=== PATIENT | female | born 1985 | race Caucasian/White ===

== ENCOUNTER 2017-07-31 20:58 | Inpatient (IN) | payer OTHER ==
[2017-07-31] MEDS ORDERED: Lidocaine 1% 50 ML MDV INJECT ONE (21:52)
[2017-07-31] MEDS ORDERED: Sodium Chloride 0.9% 10 ML Syringe FLUSH PRN (21:52)
[2017-07-31] MEDS ORDERED: Nalbuphine 20 MG/1 ML Amp IVPUSH PRN (21:52)
[2017-07-31] MEDS ORDERED: Ondansetron 4 MG/2 ML SDV IVPUSH PRN (21:52)
[2017-07-31] MEDS ORDERED: Oxytocin/Lactated Ringers 10 UNIT/1,000 ML BAG IV SCH ×2 (22:00)
[2017-07-31] MEDS: Lactated Ringers 1,000 ML IV SCH ×2 (22:15→22:54)
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
[2017-07-31] MEDS ORDERED: diphenhydrAMINE 50 MG/ML SDV IVPUSH PRN (22:41)
[2017-07-31] MEDS ORDERED: ePHEDrine 50 MG/ML SDV IVPUSH PRN (22:41)
[2017-07-31] MEDS ORDERED: fentaNYL 100 MCG/2 ML SDV EPIDUR PRN (22:41)
[2017-07-31] MEDS ORDERED: fentaNYL/Bupivacaine in NS PF 2.5 MCG/ML-0.1% 50 ML Syringe EPIDUR SCH (22:45)
--- NOTE | 2017-07-31 23:08 | PCM.PREANE ---
Preanesthetic Assessment - Anesthesia/Transfusion/Family Hx Anesthesia History: Prior Anesthesia Without Reaction Family History of Anesthesia Reaction: No Transfusion History: No Prior Transfusion(s) - Review of Systems General: No Symptoms Pulmonary: No Symptoms Cardiovascular: No Symptoms Gastrointestinal: No Symptoms Neurological: No Symptoms Other: Reports: Anxiety - Physical Assessment O2 Sat by Pulse Oximetry: 99 Respiratory Rate: 14 Vital Signs: Last Vital Signs Temp 98.2 F 07/31/17 21:52 Pulse 91 07/31/17 21:52 Resp 14 07/31/17 21:52 BP 140/85 07/31/17 21:52 Pulse Ox 99 07/31/17 21:52 Height: 5 ft 6 in Weight: 68.039 kg ASA Class: 2 Mental Status: Alert & Oriented x3 Airway Class: Mallampati = 1 Dentition: Reports: Normal Dentition Thyro-Mental Finger Breadths: 3 Mouth Opening Finger Breadths: 3 ROM/Head Extension: Full Lungs: Clear to Auscultation, Normal Respiratory Effort Cardiovascular: Regular Rate, Regular Rhythm - Lab Values: Laboratory Last Values WBC 15.64 K/mm3 (3.98-10.04) H 07/31/17 22:18 RBC 4.14 M/mm3 (3.98-5.22) 07/31/17 22:18 Hgb 11.5 gm/L (11.2-15.7) 07/31/17 22:18 Hct 34.8 % (34.1-44.9) 07/31/17 22:18 MCV 84.1 fl (79.4-94.8) 07/31/17 22:18 MCH 27.8 pg (25.6-32.2) 07/31/17 22:18 MCHC 33.0 g/dl (32.2-35.5) 07/31/17 22:18 RDW Std Deviation 47.4 fL (36.4-46.3) H 07/31/17 22:18 Plt Count 250 K/mm3 (182-369) 07/31/17 22:18 MPV 10.4 fl (9.4-12.3) 07/31/17 22:18 - Allergies Allergies/Adverse Reactions: Allergies Allergy/AdvReac Type Severity Reaction Status Date / Time No Known Allergies Allergy Verified 07/31/17 22:00 - Blood Blood Available: No - Acknowledgements Anesthesia Type Planned: Epidural Pt an Appropriate Candidate for the Planned Anesthesia: Yes Alternatives and Risks of Anesthesia Discussed w Pt/Guardian: Yes Pt/Guardian Understands and Agrees with Anesthesia Plan: Yes PreAnesthesia Questionnaire HEENT History: Reports: Impaired Vision Other HEENT History: glasses Cardiovascular History: Reports: None, Other (See Below) (in ER for tachycardia) Respiratory History: Reports: None Gastrointestinal History: Reports: GERD (with preg) PERSONAL TRAINER History: Reports: Dysfunctional Uterine Bleeding, Other (See Below) Other OB/BYN History: current period started at [facility]. states having heavy periods with clots Musculoskeletal History: Reports: Other (See Below) Other Musculoskeletal History: spinal bifida Neurological History: Reports: Migraines Psychiatric History: Reports: Anxiety, Depression - Past Surgical History Female Surgical History: Reports: Section Musculoskeletal Surgical History: Reports: Other (See Below) - SUBSTANCE USE Smoking Status *Q: Current Every Day Smoker Tobacco Use Within Last Twelve Months: Cigarettes Second Hand Smoke Exposure: Yes Days Per Week of Alcohol Use: 0 Recreational Drug Use History: No - HOME MEDS Home Medications: Home Meds traMADol HCl [Tramadol HCl] 50 mg PO ASDIRECTED 05/25/14 [History] Gabapentin [Neurontin] 300 mg PO BEDTIME 04/14/16 [History] Ferrous Sulfate [Iron] 325 mg PO BID 07/31/17 [History] traMADol HCl [Tramadol HCl] 50 mg PO BID 07/31/17 [History] - CURRENT (IN HOUSE) MEDS Current Meds: Current Medications Diphenhydramine HCl (Benadryl) 25 mg IVPUSH Q6H PRN PRN Reason: pruritis Ephedrine Sulfate (Ephedrine Sulfate) 5 mg IVPUSH ASDIRECTED PRN PRN Reason: Hypotension Fentanyl (Sublimaze) 100 mcg EPIDUR Q3H PRN PRN Reason: Pain Last Admin: 07/31/17 23:03 Dose: 100 mcg Fentanyl/Bupivacaine HCl (Fentanyl/Bupivacaine/Ns 2.5 Mcg-0.1% 50 Ml) 50 ml EPIDUR ASDIRECTED REPLACED BY [facility] Last Admin: 07/31/17 23:03 Dose: 50 ml Lactated Ringer's (Ringers, Lactated) 1,000 mls @ 100 mls/hr IV ASDIRECTED REPLACED BY [facility] Last Admin: 04/12/18 22:15 Dose: 999 mls/hr Oxytocin/Lactated Ringer's (Pitocin In Lr 10 Units/1,000 Ml) 10 unit in 1,000 mls @ 100 mls/hr IV .CONTINUOUS RADHA Oxytocin/Lactated Ringer's (Pitocin In Lr 10 Units/1,000 Ml) 10 unit in 1,000 mls @ 500 mls/hr IV .CONTINUOUS RADHA Nalbuphine HCl (Nubain) 10 mg IVPUSH Q2H PRN PRN Reason: Pain (moderate 4-6) Ondansetron HCl (Zofran) 4 mg IVPUSH Q4H PRN PRN Reason: Nausea/Vomiting Sodium Chloride (Saline Flush) 10 ml FLUSH ASDIRECTED PRN PRN Reason: Keep Vein Open Discontinued Medications Lidocaine HCl (Xylocaine 1%) 10 ml INJECT ONETIME ONE Stop: 07/31/17 21:53
[2017-08-01] MEDS ORDERED: Bupivacaine 0.25% 10 ML SDV ONE (01:00)
--- NOTE | 2017-08-01 01:18 | PCM.SN ---
- Free Text/Narrative Note: Andreina is a 32-year-old 4 now para 4004 white female who was admitted on the evening of 07/31/2017 in active labor. She is found be approximately 4 cm dilated, 80% effaced with bulging bag claudio. After admission heart tones are noted to be reassuring and artificial rupture membranes was undertaken. She is group B strep negative. Precautions were taken considering she was a vaginal after section candidate. Consents were obtained for both section and trial of labor after section to achieve vaginal after section. labs were obtained. Patient was monitored continuously. Anesthesia and surgery departments were made aware of her presence in labor and delivery. She had an epidural placed for labor and analgesia. She progressed well and at approximately oh 12:15 patient became complete on . She pushed for a short period of time and delivered a viable, dickerson , female infant with Apgars of 8 and 9, a length of 19 inches and a weight of 3080 g (6 pounds 12.6 ounces) in a left occiput anterior position. Baby was placed on mom's abdomen, was dried and stimulated. Nose and mouth were bulb suctioned. Cord was clamped 2 and cut by the baby's father. Cord blood was obtained. Umbilical cord had 3 vessels. She had a small second-degree laceration. Laceration was repaired with 3-0 Monocryl suture in a routine fashion using epidural for anesthesia. Pitocin was administered after the delivery the baby to facilitate increase uterine tone and decreased likelihood of bleeding. Placenta delivered in a Ponce presentation, appeared intact and was discarded per patient desire. Patient plans to nurse. As her blood loss was 100 mL. Condition was good.
[2017-08-01] MEDS ORDERED: Benzocaine/Menthol 20%-0.5% Spray 56 GM Canister TOP PRN (01:53)
[2017-08-01] MEDS ORDERED: Docusate Sodium 100 MG Cap PO PRN (01:53)
[2017-08-01] MEDS ORDERED: Acetaminophen 325 MG Tab PO PRN (01:53)
[2017-08-01] MEDS ORDERED: Witch Hazel Medicated Pads 100/Jar TOP PRN (01:53)
[2017-08-01] MEDS ORDERED: Lanolin 100% Cream 7 GM Tube TOP PRN (01:53)
[2017-08-01] MEDS: Ibuprofen 600 MG Tab PO PRN ×2 (02:23→17:53)
[2017-08-01] MEDS ORDERED: Prenatal Multivitamin with Calcium/Folic Acid/Iron Tab PO SCH (09:00)
[2017-08-01] MEDS: traMADol 50 MG Tab PO SCH (14:32)
[2017-08-02] MEDS: Ibuprofen 600 MG Tab PO PRN (04:39)
[2017-08-02] MEDS: traMADol 50 MG Tab PO SCH ×2 (06:55→09:57)
--- NOTE | 2017-08-02 07:02 | PCM.DCSUM1 ---
Discharge Summary - Hospital Course Free Text/Narrative:: Andreina is a 32-year-old 4 now para 4004 white female who was admitted on the evening of 07/31/2017 in active labor. She is found be approximately 4 cm dilated, 80% effaced with bulging bag claudio. After admission heart tones are noted to be reassuring and artificial rupture membranes was undertaken. She is group B strep negative. Precautions were taken considering she was a vaginal after section candidate. Consents were obtained for both section and trial of labor after section to achieve vaginal after section. labs were obtained. Patient was monitored continuously. Anesthesia and surgery departments were made aware of her presence in labor and delivery. She had an epidural placed for labor and analgesia. She progressed well and at approximately oh 12:15 patient became complete on . She pushed for a short period of time and delivered a viable, dickerson , female with Apgars of 8 and 9, a length of 19 inches and a weight of 3080 g (6 pounds 12.6 ounces) in a left occiput anterior position. Baby was placed on mom's abdomen, was dried and stimulated. Nose and mouth were bulb suctioned. Cord was clamped 2 and cut by the baby's father. Cord blood was obtained. Umbilical cord had 3 vessels. She had a small second-degree laceration. Laceration was repaired with 3-0 Monocryl suture in a routine fashion using epidural for anesthesia. Pitocin was administered after the delivery the baby to facilitate increase uterine tone and decreased likelihood of bleeding. Placenta delivered in a [place] presentation, appeared intact and was discarded per patient desire. Patient plans to nurse. As her blood loss was 100 mL. Post patient was restarted on her tramadol 25 mg per day. Also restarted on her gabapentin for back pain. She is nursing without problems. She is doing well, has minimal lochia and is voiding without concerns. She is desiring discharge home. - Discharge Data Discharge Date: 08/02/17 Discharge Disposition: Home, Self-Care 01 Condition: Good - Patient Instructions Diet: Regular Diet as Tolerated (Nursing diet with increased calories and calcium as directed) Activity: As Tolerated (No intercourse or tampons until bleeding resolves) Driving: Do Not Drive (Do not drive [address] as desired.) Showering/Bathing: May Shower (Patient may take a bath) Notify Provider of: Fever, Increased Pain, Swelling and Redness, Nausea and/or Vomiting - Discharge Plan Home Medications: Home Meds traMADol HCl [Tramadol HCl] 50 mg PO ASDIRECTED 05/25/14 [History] Gabapentin [Neurontin] 300 mg PO BEDTIME 04/14/16 [History] Ferrous Sulfate [Iron] 325 mg PO BID 07/31/17 [History] traMADol HCl [Tramadol HCl] 50 mg PO BID 07/31/17 [History] Acetaminophen [Tylenol] 650 mg PO Q4H PRN tablet 08/02/17 [Rx] Ibuprofen [IJD: Ibuprofen] 600 mg PO Q4H PRN tablet 08/02/17 [Rx] Patient Handouts: Steps to Quit Smoking Referrals: Paras Alberts MD [Primary Care Provider] - (Return to clinicDr. Alberts2 weeks.) - Discharge Summary/Plan Comment DC Time >30 min.: No Discharge Summary/Plan Comment: Discharge instructions: 1. Discharge home 2. Diet, activity and follow-up discussed with patient. Recommend nursing diet with increased calories and calcium. 3. Precautions given concern increased pain, bleeding, temperature, signs/ symptoms of DVT/PE. 4. Medications per home medication was printed, discussed with and given to the patient. 5. Return to clinic-Dr. Alberts[facility] in 2 weeks. Diagnosis: Term -delivered Condition: Good - Patient Data Vitals - Most Recent: Last Vital Signs Temp 36.6 C 08/01/17 21:19 Pulse 64 08/02/17 03:45 Resp 16 08/02/17 03:45 BP 96/49 L 08/02/17 03:45 Pulse Ox 96 08/02/17 03:45 Weight - Most Recent: 68.039 kg I&O - Last 24 hours: Intake & Output 08/01/17 08/01/17 08/02/17 14:59 22:59 06:59 Intake Total 360 Balance 360 Med Orders - Current: Current Medications Acetaminophen (Tylenol) 650 mg PO Q4H PRN PRN Reason: mild pain or fever Benzocaine/Menthol (Dermoplast Pain Relief [place]) 0 gm TOP ASDIRECTED PRN PRN Reason: Perineal Comfort Measure Last Admin: 08/01/17 02:22 Dose: 1 can Docusate Sodium (Colace) 100 mg PO BID PRN PRN Reason: Constipation Emollient Ointment (Lansinoh Hpa) 0 gm TOP ASDIRECTED PRN PRN Reason: Sore Nipples Gabapentin (Neurontin) 300 mg PO BEDTIME RADHA Ibuprofen (Motrin) 600 mg PO Q4H PRN PRN Reason: Mild pain or fever Last Admin: 08/02/17 04:39 Dose: 600 mg Prenat Multivit/[place]/Iron/Folic Ac ( Plus Iron) 1 each PO DAILY [facility] Last Admin: 08/01/17 14:32 Dose: 1 each Tramadol HCl (Ultram) 25 mg PO DAILY [facility] Last Admin: 08/02/17 06:55 Dose: 25 mg Witch Elo (Tucks) 1 pad TOP ASDIRECTED PRN PRN Reason: Hemorrhoid pain Last Admin: 08/01/17 02:22 Dose: 1 can Discontinued Medications Bupivacaine HCl (Sensorcaine-Mpf 0.25%) 10 ml .ROUTE .[facility] ONE Stop: 08/01/17 01:01 Diphenhydramine HCl (Benadryl) 25 mg IVPUSH Q6H PRN PRN Reason: pruritis Ephedrine Sulfate (Ephedrine Sulfate) 5 mg IVPUSH ASDIRECTED PRN PRN Reason: Hypotension Fentanyl (Sublimaze) 100 mcg EPIDUR Q3H PRN PRN Reason: Pain Last Admin: 07/31/17 23:03 Dose: 100 mcg Fentanyl/Bupivacaine HCl (Fentanyl/Bupivacaine/Ns 2.5 Mcg-0.1% 50 Ml) 50 ml EPIDUR ASDIRECTED [facility] Last Admin: 07/31/17 23:03 Dose: 50 ml Lactated Ringer's (Ringers, Lactated) 1,000 mls @ 100 mls/hr IV ASDIRECTED [facility] Last Admin: 07/31/17 22:54 Dose: 999 mls/hr Oxytocin/Lactated Ringer's (Pitocin In Lr 10 Units/1,000 Ml) 10 unit in 1,000 mls @ 100 mls/hr IV .CONTINUOUS RADHA Last Admin: 08/01/17 02:22 Dose: 100 mls/hr Oxytocin/Lactated Ringer's (Pitocin In Lr 10 Units/1,000 Ml) 10 unit in 1,000 mls @ 500 mls/hr IV .CONTINUOUS RADHA Lidocaine HCl (Xylocaine 1%) 10 ml INJECT ONETIME ONE Stop: 07/31/17 21:53 Nalbuphine HCl (Nubain) 10 mg IVPUSH Q2H PRN PRN Reason: Pain (moderate 4-6) Ondansetron HCl (Zofran) 4 mg IVPUSH Q4H PRN PRN Reason: Nausea/Vomiting Sodium Chloride (Saline Flush) 10 ml FLUSH ASDIRECTED PRN PRN Reason: Keep Vein Open
[2017-08-02 09:51] VITALS: BP 123/79
[2017-08-02] MEDS ORDERED: Gabapentin 300 MG Cap PO SCH (21:00)
== END 2017-08-02 10:24 | disposition home or self-care (01) | DRG 775 ==
LOC: JD.OBCHECK 20:58 → JD.OB 20:59 → JD.OBCHECK 22:01 → JD.OB 22:02 → OBSVTOIN 08-01 00:35 → JD.MS 08-01 00:36 → JD.OB 08-01 13:20
PROVIDERS: ADMIT Obstetrics & Gynecology; ATTEND Obstetrics & Gynecology
PROC: 00HU33Z Insertion of Infusion Device into Spinal Canal, Percutaneous Approach (ICD-10-PCS; 2017-07-31)
PROC: 3E0R3BZ Introduction of Anesthetic Agent into Spinal Canal, Percutaneous Approach (ICD-10-PCS; 2017-07-31)
PROC: 0KQM0ZZ Repair Perineum Muscle, Open Approach (ICD-10-PCS; principal; 2017-08-01)
PROC: 10907ZC Drainage of Amniotic Fluid, Therapeutic from Products of Conception, Via Natural or Artificial Opening (ICD-10-PCS; principal; 2017-08-01)
PROC: 6A550ZT Pheresis of Cord Blood Stem Cells, Single (ICD-10-PCS; principal; 2017-08-01)
PROC: 10E0XZZ Delivery of Products of Conception, External Approach (ICD-10-PCS; principal; 2017-08-01)
DX: O34.219 Maternal care for unspecified type scar from previous cesarean delivery (principal); Z37.0 Single live birth; N85.8 Other specified noninflammatory disorders of uterus; O99.334 Smoking (tobacco) complicating childbirth; F17.210 Nicotine dependence, cigarettes, uncomplicated; Z3A.38 38 weeks gestation of pregnancy; O70.1 Second degree perineal laceration during delivery; O75.89 Other specified complications of labor and delivery; M79.7 Fibromyalgia; Q05.9 Spina bifida, unspecified
CPT/HCPCS: 36415; 51702; 59025; 59300; 59409; 85027; 86850; 86900; 86901; A9270-GY; J2590; J3010; J7120

== ENCOUNTER 2020-12-21 05:24 | Emergency (ER) | payer OTHER ==
[2020-12-21 05:42] VITALS: BP 124/82; PULSE 93
[2020-12-21] MEDS ORDERED: Sodium Chloride 0.9% 10 ML Syringe FLUSH PRN (05:57)
[2020-12-21] MEDS ORDERED: Ondansetron 4 MG/2 ML SDV IVPUSH ONE (05:57)
[2020-12-21] MEDS ORDERED: HYDROmorphone 0.5 MG/0.5 ML Syringe IVPUSH ONE (05:59)
[2020-12-21] MEDS ORDERED: Sodium Chloride 0.9% 1,000 ML IV SCH (06:00)
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
--- NOTE | 2020-12-21 07:03 | CT ---
CT abdomen and pelvis Technique: Multiple axial sections were obtained from above the kidneys inferiorly through the pubic symphysis. Intravenous and oral contrast were not utilized. Study has been performed as a ureteral stone protocol. Reconstructed coronal and sagittal images were obtained. Comparison: No prior CT abdomen or pelvis study is available. Findings: Kidneys show no abnormal calcifications. No hydronephrosis is seen. No ureteral dilatation is seen. No abnormal calcifications are noted along the course of the ureters. Kidneys show no hydronephrosis or discrete mass. Visualized lung bases shows nothing acute. Visualized portions of the noncontrast liver show no focal abnormality. Gallbladder contains no calcified gallstones. Spleen size is normal. Adrenal glands show no nodule. Pancreas shows no discrete abnormality. Abdominal aorta shows no aneurysm. No retroperitoneal adenopathy is seen. No mesenteric abnormalities are seen. No pelvic mass or adenopathy is noted. Appendix is seen and is normal in size. Cyst is noted within the left adnexa measuring around 2.6 cm most likely representing normal physiologic dominant follicle. Mild increased stool is seen throughout the colon. Food material is noted within the stomach. Bone window settings were reviewed which show scoliosis within the spine. Slight deformity is noted within the apophyseal joint on the right side at L5-S1 which is developmental. Impression: 1. No renal calculi, hydronephrosis or ureteral calculi are seen. 2. Mild increased stool within the colon. 3. Other findings believed to be incidental as described above. Diagnostic code #2
--- NOTE | 2020-12-21 07:51 | CR ---
Chest: Frontal view of the chest was obtained. Comparison: No prior chest imaging is available. Nodular density is seen within the left mid to lower lung which is rather dense and believed to represent a granuloma. Slight density is seen above the left hemidiaphragm which correlates to a small diaphragmatic area of eventration. Lungs otherwise are clear. Heart size and mediastinum are within normal limits. Bony structures are unremarkable. Impression: 1. Incidental findings. 2. Nothing acute is seen on frontal chest x-ray. Diagnostic code #2
== END 2020-12-21 08:07 | disposition home or self-care (01) ==
LOC: JD.ED 05:24
DX: R10.12 Left upper quadrant pain (principal); R07.89 Other chest pain; K21.9 Gastro-esophageal reflux disease without esophagitis; Z86.16 Personal history of COVID-19; Z72.0 Tobacco use; Z79.899 Other long term (current) drug therapy
CPT/HCPCS: 36415; 71045; 74176; 80053; 83690; 83735; 84443; 84484; 84703; 85025; 93005; 96374; 96375; 99285; J1170; J2405; J7030; 93010; 99284

== ENCOUNTER 2022-05-21 23:04 | Emergency (ER) | payer SELFPAY ==
[2022-05-21 23:46] VITALS: BP 120/70; PULSE 92
[2022-05-22] MEDS ORDERED: Sodium Chloride 0.9% 1,000 ML IV SCH (00:30)
[2022-05-22] MEDS ORDERED: HYDROmorphone 0.5 MG/0.5 ML Syringe IVPUSH ONE (01:35)
[2022-05-22] MEDS ORDERED: Iopamidol 612 MG/ML 100 ML Bottle IVPUSH ONE (01:41)
[2022-05-22] MEDS ORDERED: Ertapenem 1 GM in Sodium Chloride 0.9% 50 ML IV STA (01:58)
== END 2022-05-22 02:57 | disposition left against medical advice (07) ==
LOC: JD.ED 23:04
DX: K35.80 Unspecified acute appendicitis (principal); K21.9 Gastro-esophageal reflux disease without esophagitis; F17.210 Nicotine dependence, cigarettes, uncomplicated; Z86.16 Personal history of COVID-19; Z79.899 Other long term (current) drug therapy
CPT/HCPCS: 36415; 74177; 80053; 85007; 85027; 96374; 99284; J1170; Q9967; 99285

== ENCOUNTER 2022-05-22 03:34 | Day surgery (SDC) | payer SELFPAY ==
[2022-05-22] MEDS ORDERED: Ertapenem 1 GM in Sodium Chloride 0.9% 50 ML IV STA (04:16)
[2022-05-22] MEDS ORDERED: Sodium Chloride 0.9% 1,000 ML IV SCH (04:30)
[2022-05-22] MEDS ORDERED: HYDROmorphone 0.5 MG/0.5 ML Syringe IVPUSH ONE (04:35)
[2022-05-22] MEDS ORDERED: Ondansetron 4 MG/2 ML SDV IVPUSH ONE (08:57)
[2022-05-22] MEDS: HYDROmorphone 0.5 MG/0.5 ML Syringe IVPUSH PRN ×2 (09:16→12:37)
[2022-05-22] MEDS ORDERED: ceFAZolin 2 GM in Sodium Chloride 0.9% 50 ML IV SCH (12:30)
[2022-05-22] MEDS ORDERED: Ertapenem 1 GM in Sodium Chloride 0.9% 50 ML IV ONE (13:00)
[2022-05-22] MEDS ORDERED: Lactated Ringers 1,000 ML IV SCH (13:15)
[2022-05-22] MEDS ORDERED: Lidocaine 1% 50 ML MDV ONE (14:20)
[2022-05-22] MEDS ORDERED: Bupivacaine 0.5%/EPINEPHrine 1:200,000 50 ML MDV ONE (14:20)
[2022-05-22] MEDS ORDERED: Lidocaine 1% 2 ML ONE (14:27)
[2022-05-22] MEDS ORDERED: fentaNYL 100 MCG/2 ML SDV ONE (14:27)
[2022-05-22] MEDS ORDERED: Rocuronium 50 MG/5 ML Vial ONE (14:27)
[2022-05-22] MEDS ORDERED: Propofol 200 MG/20 ML SDV ONE (14:27)
[2022-05-22] MEDS ORDERED: Sugammadex Sodium 200 MG/2 ML VIAL ONE (14:46)
[2022-05-22] MEDS ORDERED: fentaNYL 100 MCG/2 ML SDV IVPUSH PRN (14:47)
[2022-05-22] MEDS ORDERED: HYDROmorphone 0.5 MG/0.5 ML Syringe IVPUSH PRN (14:47)
[2022-05-22] MEDS ORDERED: Ondansetron 4 MG/2 ML SDV IVPUSH PRN (14:47)
[2022-05-22] MEDS ORDERED: Ketorolac 30 MG/ML SDV ONE (15:28)
[2022-05-22] MEDS ORDERED: Ondansetron 4 MG/2 ML SDV ONE (15:28)
[2022-05-22 16:15] VITALS: BP 111/74; PULSE 71
== END 2022-05-22 17:00 | disposition home or self-care (01) ==
LOC: JD.ED 03:34 → JD.SDS 11:43
PROVIDERS: ATTEND Surgery
DX: K35.33 Acute appendicitis with perforation, localized peritonitis, and gangrene, with abscess (principal); K21.9 Gastro-esophageal reflux disease without esophagitis; G43.909 Migraine, unspecified, not intractable, without status migrainosus; F41.9 Anxiety disorder, unspecified; F32.A Depression, unspecified; F17.210 Nicotine dependence, cigarettes, uncomplicated; Z79.899 Other long term (current) drug therapy; Z86.16 Personal history of COVID-19
CPT/HCPCS: 44970; 81001; 81025; J1170; J1335; J1885; J2001; J2405; J2704; J3010; J3490; J7030; J7120; 00840; 99285